=== PATIENT | female | born 1995 | race Caucasian/White ===

== ENCOUNTER 2023-09-28 12:43 | Emergency (ER) | payer OTHER, SELFPAY ==
[2023-09-28 12:48] VITALS: BP 134/85
--- NOTE | 2023-09-28 13:15 | ED.CVA ---
History of Present Illness
General
Chief Complaint: CVA/TIA Symptoms
Time Seen by Provider: 09/28/23 13:04
Onset of Stroke Symptoms
Onset of symptoms known: Yes
Date of onset of symptoms: 09/28/23
History of Present Illness
History of Present Illness:
28-year-old female presenting with left-sided facial droop. Patient states that this morning she had a second cup of coffee and then felt dizzy described as a lightheadedness where her entire head felt tight, her legs felt tight, and she was having
palpitations. Patient states that this started around 10 AM. Pt states symptoms slowly improved on their own. Patient states that around noon she went to the bathroom and was smiling in the mirror when she felt that her left side of her smile was
'off' prompting ED evaluation. Pt states her entire left side 'feels weird' but denies any numbness, weakness, tingling or visual changes. Patient denies any neck pain, chest pain or shortness of breath. Patient states that she was having frontal
headache which has since resolved. Patient states that over the weekend she developed cold-like symptoms with fever Tmax 102. Patient denies any cough or sore throat. Patient states she took Tylenol and Motrin with resolution of headache. Pt
states that she recently tested negative for strep and COVID. Pt is not on control.
Past History
Past History
ED Past Medical History: None
ED Past Surgical History: Orthopedic
Social History
Tobacco: Non-smoker
Alcohol: None
Personal:
Living: with family
Employment: Employed
Phy Exam
Physical Exam
Physical Exam:
General: Alert, no acute distress, well appearing, nontoxic
Head: NCAT, EOMI, PERRLA, no nystagmus
Eyes: clear conjunctiva
Neck: supple, FROM. negative Brudzinski
Cardiac: regular rate and rhythm, no murmur
Lungs: clear to auscultation bilaterally. No wheezes, rales, or rhonchi. Speaking full unlabored sentences. No respiratory distress.
Abdomen: soft, nondistended nontender. No rebound or guarding.
MSK: no lower extremity edema bilaterally. No deformity
Skin: warm, dry, no rashes
Neuro: Alert and oriented x3. Cranial nerves II through grossly intact with no focal deficits. Normal finger to nose. 5 out of 5 strength bilateral upper and lower extremity. No pronator drift bilateral upper and lower extremity. No slurred
speech. No appreciable left-sided facial droop. Sensation intact to face and bilateral upper/lower extremities
Course
Orders/Labs/Results
Orders:
Orders
09/28/23 13:14
EKG [Electrocardiogram (*1)] Urgent
Reason for Study: Palpitations
CT Head W/o Iv Contrast Urgent
Comment:
Reason For Exam: left sided facial droop resovled, headache
EKG- Treatment ONCE
Test Result ONCE
09/28/23 13:15
0.9% Sodium Chloride 1000 ml [Nss] 1,000 ml IV BOLUS
09/28/23 13:21
CBC/With Diff [Complete Blood Count/With Diff] Urgent
CMP [Comprehensive Metabolic Panel] Urgent
, Urine Qualitative Screen [HCG, Urine Qualitative Screen] Urgent
Date Specimen was Collected: 09/28/23
Time Specimen was Collected: 13:20
Abnormal Lab Results
09/28/23
13:21
Monocytes % 10.7 H %
(1.7-9.3)
Glucose 111 H mg/dl
(70-99)
09/28/23 13:21
09/28/23 13:21
Vital Signs
Initial and Last Documented VS:
Initial Vital Signs
Temp Pulse Resp BP Pulse Ox
99.3 F 108 16 134/85 100
09/28/23 12:48 09/28/23 12:48 09/28/23 12:48 09/28/23 12:48 09/28/23 12:48
Last Documented Vital Signs
Temp Pulse Resp BP Pulse Ox
99.3 F 85 16 107/75 99
09/28/23 12:48 09/28/23 13:33 09/28/23 13:33 09/28/23 13:32 09/28/23 13:33
MDM/Problems Addressed
MDM/Problems Addressed:
28-year-old female with no past medical history presenting with symptoms that first started as 'head tightness', palpitations and lightheadedness after drinking a second cup of coffee around 10am. Pt states when she was smiling in the bathroom
around noon, she felt that the left side of her smile was 'off' prompting ED arrival. Neurologically intact with no focal deficits. No facial droop noted. Sensation intact to face and bilateral upper/lower extremities. EOMI. NIH stroke scale 0. Pt
states her entire left side feels 'weird' but no deficits noted on exam. Pt states she is currently . Pt is not on any oral control. Ddx includes migraine, viral syndrome. Low suspicion for cerebral venous thrombosis given no
acute neurological finding. Low suspicion for meningitis given well appearing, FROM neck with no neck pain, negative Brudzinski. Low suspicion for TIA given otherwise healthy, no past medical history, 28yo.
results reviewed. CT head shows No evidence of acute intracranial abnormality as read by radiology. EKG shows NSR at 82bpm with NM 138 QTc 436 no acute ischemic changes. WBC 5.9 with no left shift or bandemia. Electrolytes and creatinine within
normal limits.
On reevaluation, patient states she feels back to normal. CN II-XII grossly intact, no facial droop, sensation intact.No slurred speech. Discussed results with patient at bedside. Advised to follow up with primary care doctor in 1-2 days. Patient
expressed verbal understanding.
*Critical Care Note
Total Time (30-74mins, 75-104mins- exclusive of procedures): Not Applicable
ED Attending Note
-
Portions of this chart may have been created with voice recognition software.� Occasional wrong word or��sound alike� substitutions may have occurred due to the inherent limitations of voice recognition software.
Discharge Plan
Departure
Patient Disposition: Home (Routine Discharge)
Date of Disposition: 09/28/23
Time of Disposition: 16:17
Patient with high blood pressure during this ER visit?: No
Discharge Problem:
Headache
Instructions: Headache, Adult ED
Prescriptions:
No Action
Vitamin
1 tab PO DAILY
Referrals:
Sherice Rodríguez, DO [Family Provider] -
Activity Restrictions/Additional Instructions:
Take tylenol 975mg every 6 hours and/or ibuprofen 800mg every 8 hours with food as needed for pain
Follow up with primary care doctor in 1-2 days
Return to the emergency department for slurred speech, focal weakness, neck pain or new/worsening symptoms
Interventions
Interventions:
*Risk Screen - Suicide Last Done: 09/28/23 12:48
*General Assessment Last Done: 09/28/23 12:48
*Neglect/Abuse Screening Last Done: 09/28/23 12:48
*ED COVID-19 Vaccine History Last Done: 09/28/23 12:48
*Nursing Disposition Last Done: 09/28/23 16:31
ED- Neurological Assessment Last Done: 09/28/23 12:52
ED- Cardiac Assessment Last Done: 09/28/23 13:34
Discharge Date and Time
Discharge Date/Time: 09/28/23 16:31
Print Language: [employer]INE[place]
[2023-09-28 13:32] VITALS: BP 107/75; BMI 23.2
[2023-09-28] MEDS: NSS 1000 IV (13:33)
[2023-09-28 13:47] LABS: HCG, Urine Qualitative Screen Negative
[2023-09-28 13:54] LABS: ALT (SGPT) 13 U/L (0-35); AST (SGOT) 22 U/L (14-36); Albumin 4.4 g/dl (3.5-5.0); Alkaline Phosphatase 49 U/L (38-126); Blood Urea Nitrogen 12 mg/dl (7-17); Calcium 8.9 mg/dl (8.4-10.2); Carbon Dioxide 28 mmol/L (22-30); Chloride 104 mmol/L (98-107); Estimated Creatinine Clearance > 125 ml/min; Glucose 111 mg/dl (70-99); Potassium 4.1 mmol/L (3.5-5.1); Sodium 138 mmol/L (135-145); Total Bilirubin 0.2 mg/dl (0.2-1.3); Total Protein 7.2 g/dl (6.3-8.2); eGFR > 60.00
[2023-09-28 14:49] LABS: % Basophils 0.8 % (0-2); % Eosinophils 2.2 % (0-6); % Immature Granulocytes 0.5 % (0-0.5); % Lymphocytes 25.1 % (20.5-51.1); % Monocytes 10.7 % (1.7-9.3); % Neutrophils 60.7 % (42.2-75.2); Absolute Basophils 0.1 10^3/uL (0-0.2); Absolute Eosinophils 0.1 10^3/uL (0-0.7); Absolute Lymphocytes 1.5 10^3/uL (1.2-3.4); Absolute Monocytes 0.6 10^3/uL (0.1-0.6); Absolute Neutrophils 3.6 10^3/uL (1.4-6.5); Hematocrit 39.6 % (37.0-47.0); Hemoglobin 13.3 g/dL (12.0-16.0); Mean Corp Hgb Conc. 33.6 g/dL (33.0-37.0); Mean Corpuscular Hgb 28.1 pg (27.0-31.0); Mean Corpuscular Volume 83.5 fL (81.0-99.0); Nucleated Red Blood Cells % 0 %; Platelet Count 275 10^3/uL (130-400); Red Blood Cell Count 4.74 10^6/uL (4.20-5.40); Red Cell Dist. Width 12.9 % (11.5-14.5); White Blood Cell Count 5.9 10^3/uL (4.8-10.8)
== END 2023-09-28 16:31 | disposition home or self-care (01) ==
LOC: EMR 12:43
PROVIDERS: EMERGENCY PHYSICIAN Emergency Medicine; FAMILY PHYSICIAN Family Medicine
DX: R51.9 Headache, unspecified (principal)
CPT/HCPCS: 99284; 96360; 70450; 80053; 81025; 85025; 93005

== ENCOUNTER → 2023-10-27 16:21 | Outpatient (REF) | payer OTHER, SELFPAY | LOC: MRI 3T 16:21 | PROVIDERS: ATTENDING PHYSICIAN Nurse Practitioner Family; FAMILY PHYSICIAN Family Medicine | DX: R51.9 Headache, unspecified (principal); R20.8 Other disturbances of skin sensation | CPT/HCPCS: 70551 ==

== ENCOUNTER → 2024-12-30 15:39 | Outpatient (REF) | payer OTHER, SELFPAY | LOC: RAD 15:39 | PROVIDERS: ATTENDING PHYSICIAN Nurse Practitioner Primary Care | DX: M25.541 Pain in joints of right hand (principal); M25.542 Pain in joints of left hand; R76.81 Abnormal rheumatoid factor and anti-citrullinated protein antibody without rheumatoid arthritis | CPT/HCPCS: 73130 ==